=== PATIENT | female | born 1970 | race Caucasian/White ===

== ENCOUNTER 2017-02-03 11:14 | Emergency (ER) | payer OTHER ==
[2017-02-03 11:43] VITALS: TEMP 98.4; BMI 31.9
--- NOTE | 2017-02-03 12:00 | PDOC ---
History of Present Illness - General Chief Complaint: Pain Stated Complaint: ABDOMINAL PAIN/NAUSEA Time Seen by Provider: 02/03/17 11:46 History Source: Patient Exam Limitations: No Limitations - History of Present Illness Initial Comments: CHIEF COMPLAINT: 46 y/o afebrile female with no significant PMH c/o nausea, epigastric pain and diarrhea x 4 days. HISTORY OF PRESENT ILLNESS: The patient states her symptoms started and were intermittent. however, today the abdominal pain became constant and she feels more nauseous. She denies f/c, vomiting, CRUZ, CP, SOB, back pain, hematuria, dysuria, bloody diarrhea. She does not recall eating anything strange or new before her symptoms started. Vital signs on arrival are within normal limits. REVIEW OF SYSTEMS: GENERAL/CONSTITUTIONAL: No fever/chills. No weakness. No weight change. HEAD, EYES, EARS, NOSE AND THROAT: No change in vision. No ear pain or discharge. No sore throat. CARDIOVASCULAR: No chest pain or shortness of breath. RESPIRATORY: No cough, wheezing, or hemoptysis. GASTROINTESTINAL: +abd pain, nausea, diarrhea. No vomiting. No blood in stool. GENITOURINARY: No dysuria, frequency, or change in urination. MUSCULOSKELETAL: No joint or muscle swelling or pain. No neck or back pain. SKIN: No rash or easy bruising. NEUROLOGIC: No headache, vertigo, loss of consciousness, or loss of sensation. PHYSICAL EXAM: GENERAL: The patient is awake, alert, and fully oriented, in no acute distress. She is well appearing and ambulatory. HEAD: Normal with no signs of trauma. ENT: Pupils equal, round and reactive to light, extraocular movements intact, sclera anicteric, conjunctiva clear. Neck supple. LUNGS: Clear to auscultation bilaterally. Normal excursion. No respiratory distress or use of accessory muscles. CV: RRR, S1/S2, no MRG. Cap refill < 2 sec. ABDOMEN: Soft, very minimal TTP of epigastric region. Negative everett's sign. No mcburney's point TTP. No rebound, guarding or rigidity. EXTREMITIES: Normal range of motion, no edema. NEUROLOGICAL: Normal speech, normal gait. CN II-XII grossly intact. PSYCH: Normal mood, normal affect. SKIN: Warm, dry, normal turgor, no rashes or lesions noted. Past History - Past Medical History Allergies/Adverse Reactions: Allergies Allergy/AdvReac Type Severity Reaction Status Date / Time meperidine HCl [From Demerol] Allergy Unknown Verified 02/03/17 11:43 promethazine HCl Allergy Unknown Verified 02/03/17 11:43 [From Phenergan] Home Medications: Ambulatory Orders Famotidine [Pepcid -] 20 mg PO BID #14 tablet 02/03/17 Mag Hydrox/Al Hydrox/Simeth [Maalox Maximum Strength Susp] 355 ml PO QID #1 bottle 02/03/17 Metoclopramide HCl [Reglan -] 10 mg PO QID #30 tablet 02/03/17 Anemia: Yes Asthma: No Cancer: No Cardiac Disorders: No CVA: No COPD: No CHF: No Dementia: No Diabetes: No GI Disorders: No Disorders: No HTN: No Hypercholesterolemia: No Liver Disease: No Seizures: No Thyroid Disease: No - Surgical History Abdominal Surgery: No Appendectomy: No Cardiac Surgery: No Cholecystectomy: No Lung Surgery: No Neurologic Surgery: No Orthopedic Surgery: ((R) ACL) - Psycho/Social/Smoking Cessation Hx Anxiety: No Suicidal Ideation: No Smoking History: Never smoked Have you smoked in the past 12 months: No Information on smoking cessation initiated: No Hx Alcohol Use: No Drug/Substance Use Hx: No Substance Use Type: None *Physical Exam - Vital Signs Last Vital Signs Temp Pulse Resp BP Pulse Ox 98.4 F 89 18 140/88 100 02/03/17 11:41 02/03/17 11:41 02/03/17 11:41 02/03/17 11:41 02/03/17 11:41 ED Treatment Course - LABORATORY CBC & Chemistry Diagram: 02/03/17 13:02 02/03/17 13:02 Medical Decision Making - Medical Decision Making A/P: 46 y/o female with nausea, epigastric pain and diarrhea for the past 4 days. Plan is as follows: 1. Labs 2. UA 3. IV fluids 4. IV zofran 5. IV pepcid Labs unremarkable. UA normal Pt still with pain and nausea after pepcid and zofran. Ordered Protonix and carafate Pt states she still has pain and nausea. Will give morphine, reglan and benadryl The patient states she feels much better now. Her abdominal pain is relieved and she is no longer nauseous. She wants to go home. Will discharge to home with rx for Pepcid, reglan and maalox. Suggested she follow GERD diet instructions, take only tylenol for pain, follow up with Dr. Nicolas in 1-2 weeks and return to the ER with any worsening or concerning symptoms. The patient verbalizes understanding of all instructions, has no further questions and is awaiting discharge. *DC/Admit/Observation/Transfer Diagnosis at time of Disposition: Epigastric abdominal pain Diarrhea Qualifiers: Diarrhea type: unspecified type Qualified Code(s): R19.7 - Diarrhea, unspecified - Discharge Dispostion Disposition: HOME Condition at time of disposition: Improved - Prescriptions Prescriptions: Mag Hydrox/Al Hydrox/Simeth [Maalox Maximum Strength Susp] 355 ml PO QID #1 bottle Famotidine [Pepcid -] 20 mg PO BID #14 tablet Metoclopramide HCl [Reglan -] 10 mg PO QID #30 tablet - Referrals Referrals: Gil Nicolas MD [Staff Physician] - 1 week - Patient Instructions Printed Discharge Instructions: DI for Epigastric Pain, GERD Diet, DI for Gastroesophageal Reflux Disease (GERD) Additional Instructions: Discharge Instructions: -3 prescriptions were sent to your pharmacy; please take as prescribed -Take only Tylenol if needed for pain; do not take Advil/motrin/aleve/ibuprofen -Follow diet instructions -Follow up with Dr. Nicolas within 2 weeks -Return to the ER immediately with any worsening or concerning symptoms
[2017-02-03] MEDS ORDERED: SODIUM CHLORIDE 1,000 ML IV STA (12:33)
[2017-02-03] MEDS ORDERED: ONDANSETRON 4 MG/2 ML VIAL IVPUSH ONE (12:33)
[2017-02-03] MEDS ORDERED: FAMOTIDINE 20 MG/50 ML IVPB 50 ML IVPB ONE ×2 (12:33→12:40)
[2017-02-03] MEDS ORDERED: ONDANSETRON 4 MG/2 ML VIAL ONE (12:39)
--- NOTE | 2017-02-03 12:54 | PDOC ---
*Physical Exam - Vital Signs Last Vital Signs Temp Pulse Resp BP Pulse Ox 98.4 F 89 18 140/88 100 02/03/17 11:41 02/03/17 11:41 02/03/17 11:41 02/03/17 11:41 02/03/17 11:41 ED Treatment Course - LABORATORY CBC & Chemistry Diagram: 02/03/17 13:02 02/03/17 13:02 - Medications Given in the ED: ED Medications Discontinued Medications Generic Name Dose Route Start Last Admin Trade Name Talat PRN Reason Stop Dose Admin Ondansetron HCl 4 mg 02/03/17 12:33 02/03/17 12:42 Zofran Injection IVPUSH 02/03/17 12:34 4 mg ONCE ONE Administration Medical Decision Making - Medical Decision Making 02/03/17 12:54 Pt seen by the Advanced Practice Provider under my direct supervision Ancillary studies reviewed I agree with plan as outlined by the Advanced Practice Provider KADY Carrington *DC/Admit/Observation/Transfer Diagnosis at time of Disposition: Epigastric abdominal pain, Diarrhea - Discharge Dispostion Disposition: HOME Condition at time of disposition: Improved - Prescriptions Prescriptions: Mag Hydrox/Al Hydrox/Simeth [Maalox Maximum Strength Susp] 355 ml PO QID #1 bottle Famotidine [Pepcid -] 20 mg PO BID #14 tablet Metoclopramide HCl [Reglan -] 10 mg PO QID #30 tablet - Referrals Referrals: Gil Nicolas MD [Staff Physician] - 1 week - Patient Instructions Printed Discharge Instructions: DI for Gastroesophageal Reflux Disease (GERD), DI for Epigastric Pain, GERD Diet Additional Instructions: Discharge Instructions: -3 prescriptions were sent to your pharmacy; please take as prescribed -Take only Tylenol if needed for pain; do not take Advil/motrin/aleve/ibuprofen -Follow diet instructions -Follow up with Dr. Nicolas within 2 weeks -Return to the ER immediately with any worsening or concerning symptoms
[2017-02-03 13:14] LABS: BASOPHIL 0.1 % (0-2.0); EOSINOPHIL 0.6 % (0-4.5); MCH 26.5 pg (25.7-33.7); MCHC 32.5 g/dl (32.0-36.0); MEAN CELL VOLUME 81.6 fl (80-96); MEAN PLT VOLUME 7.6 fl (7.5-11.1); NEUTROPHILS 78.3 % (42.8-82.8); PLATELET COUNT 203 K/MM3 (134-434); RDW 16.1 % (11.6-15.6); WHITE BLOOD COUNT 6.6 K/mm3 (4.0-10.0)
[2017-02-03 13:42] LABS: ALBUMIN 3.3 g/dl (3.4-5.0); ANION GAP 10 (8-16); CALCIUM 7.9 mg/dL (8.5-10.1); CO2 23 mmol/L (21-32); COCKROFT - GAULT 179.9195; CREATININE 0.6 mg/dL (0.55-1.02); GLUCOSE,RANDOM 84 mg/dL (74-106); SGOT/AST 15 U/L (15-37); SGPT/ALT 17 U/L (12-78)
[2017-02-03 13:43] LABS: ALK PHOS 64 U/L (45-117); BILIRUBIN,TOTAL 0.4 mg/dL (0.2-1.0); TOT PROT 6.3 g/dl (6.4-8.2)
[2017-02-03] MEDS ORDERED: PANTOPRAZOLE SODIUM 40 MG in SODIUM CHLORIDE 100 ML IVPB ONE (13:56)
[2017-02-03] MEDS ORDERED: SUCRALFATE 1 GM TABLET (FP) PO ONE (13:56)
[2017-02-03] MEDS ORDERED: SUCRALFATE 1 GM TABLET (FP) ONE (14:45)
[2017-02-03] MEDS ORDERED: PANTOPRAZOLE SODIUM 100 ML IVPB ONE (14:46)
[2017-02-03] MEDS ORDERED: morphine CARPU-JECT 4 MG/1 ML DISP.SYRIN IVPUSH ONE (15:41)
[2017-02-03] MEDS ORDERED: METOCLOPRAMIDE HCL INJECTION 10 MG/2 ML VIAL IVPB ONE (15:41)
[2017-02-03] MEDS ORDERED: morphine CARPU-JECT 4 MG/1 ML DISP.SYRIN ONE (16:21)
[2017-02-03] MEDS ORDERED: METOCLOPRAMIDE HCL INJECTION 10 MG/2 ML VIAL ONE (16:21)
[2017-02-03 17:53] VITALS: BP 138/88; PULSE 88
== END 2017-02-03 17:52 | disposition home or self-care (01) ==
LOC: JER 11:14
PROC: 3E033NZ Introduction of Analgesics, Hypnotics, Sedatives into Peripheral Vein, Percutaneous Approach (ICD-10-PCS; principal; 2017-02-03)
PROC: 3E0337Z Introduction of Electrolytic and Water Balance Substance into Peripheral Vein, Percutaneous Approach (ICD-10-PCS; 2017-02-03)
PROC: 3E033GC Introduction of Other Therapeutic Substance into Peripheral Vein, Percutaneous Approach (ICD-10-PCS; 2017-02-03)
DX: R10.13 Epigastric pain (principal); R19.7 Diarrhea, unspecified; Z88.8 Allergy status to other drugs, medicaments and biological substances
CPT/HCPCS: 36415; 80053; 83690; 84703; 85025; 99283-25